=== PATIENT | female | born 1950 | race Caucasian/White ===

== ENCOUNTER → 2017-10-26 07:06 | Outpatient (CLI) | payer BC, MEDICARE, SELFPAY ==
--- NOTE | 2017-10-26 | DI.US.S_ITS ---
PROCEDURE: US PELVIC COMPLETE INDICATIONS: POST MENOPAUSAL BLEEDING TECHNIQUE: Real-time scanning was performed of the pelvic organs, with image documentation. Additional endovaginal scanning was necessary due to incomplete visualization of the adnexal and endometrial structures by transabdominal scanning. COMPARISON: None. FINDINGS: Transabdominal scanning: Limited scanning through the kidneys shows no hydronephrosis. No pathologic free abdominal or pelvic fluid. Endovaginal scanning: Uterus: Uterus is normal in size at 11.2 x 8.2 8.0 cm. The endometrium measures 7.0 mm in combined thickness. Ovaries: Ovaries not visualized. No adnexal masses seen. IMPRESSION: Abnormal thickness of the endometrial complex in this postmenopausal patient with history of vaginal bleeding. Endometrial carcinoma cannot be excluded and endometrial biopsy is recommended. Dictated by: Jorge Gonsalez [facility] Interpreted: Jennifer Flores MD on 10/26/2017 at 7:59 Approved by: Jennifer Flores MD, PhD on 10/26/2017 at 13:52
== END ==
PROVIDERS: Family Provider Family Medicine; PCP Family Medicine; Visit Provider Family Medicine
DX: N95.0 Postmenopausal bleeding (principal); R93.8 Abnormal findings on diagnostic imaging of other specified body structures
CPT/HCPCS: 76830; 76856

== ENCOUNTER → 2020-07-15 08:58 | Outpatient (CLI) | payer MEDICARE, SELFPAY ==
[2020-07-15 10:28] LABS: COVID19 -Nasal RAPID Negative (Negative)
== END ==
PROVIDERS: Visit Provider Obstetrics & Gynecology
DX: Z01.812 Encounter for preprocedural laboratory examination (principal); Z20.822 Contact with and (suspected) exposure to COVID-19
CPT/HCPCS: 87635

== ENCOUNTER 2020-07-16 10:16 | Day surgery (SDC) | payer MEDICARE, SELFPAY ==
[2020-07-16] VITALS (12 sets, daily range): BP systolic 128–165; BP diastolic 68–88; PULSE 50–76; RESP 10–18; TEMP 36.1–36.6; O2SAT 90–100; BMI 43.7
--- NOTE | 2020-07-16 | PATH_ITS ---
[facility] Accession Number: [id number] . 01 Material submitted: . UTERINE - UTERINE CONTENTS . 01 Clinical history: . SDC . 02 Diagnosis: Uterine Contents: Scant foci of atypical glandular hyperplasia / endometrial intraepithelial neoplasia, in a background of abundant blood. Please see comment. MRV 07/19/2020 1109 Local . 02 Comment: As part of routine director quality systems, this case was also reviewed by Drs. Ron and Leandro, who agree with the interpretation. . 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 More extensive sampling, such as a curettage, could be considered, if clinically appropriate. . 02 Electronically signed: . Elenita Lopez MD, Pathologist NPI- [id number] . 01 Gross description: . UTERINE CONTENTS: Received in formalin are minute fragments of mucoid and hemorrhagic material measuring 1.5 x 1.0 x 0.3 cm in aggregate. Submitted in toto in 2 cassettes. /NAHEED 07/17/2020 2310 Local . 02 Pathologist provided ICD-10: N95.0, N84.0 . 02 CPT . 057984 Performed at: 01 [facility] [address], [place], [place] [id number] MD Madi Watson MD Phone: [phone] Performed at: 02 [facility] [address] [place], [place] [id number] MD Shayla Reeves MD Phone: [phone]
--- NOTE | 2020-07-16 10:49 | PM.PREOP ---
Pre-operative Note COVID-19 COVID-19 status: Negative Result date/Date tested (Pos, Neg/Pending): 07/15/20 Interval Note History & Physical reviewed/Exam performed by Physician: Yes Changes to H&P: No H&P completed within 30 days and has changed as indicated here:: 07/01/20
[2020-07-16] MEDS: LACTATED RINGERS 1,000 ML 100 ML IV (11:08)
--- NOTE | 2020-07-16 11:30 | SUR.OPER ---
Lithotomy on padded OR bed, head on pillow, arms secured on padded arm boards at <90 degrees abduction. Legs secured in padded yellow fins stirrups.
--- NOTE | 2020-07-16 12:14 | P.OP_ITS ---
Operative Date/Time/Diagnoses Date of procedure: 07/16/20 Time of procedure: 12:14 Pre-op diagnosis: Postmenopausal bleeding Possible endometrial polyp Post-op diagnosis: same Procedure & Clinicians Procedure: Procedures Operation Date: 07/16/20 11:15 Actual Procedures Side Surgeon p D&C Hysteroscopy and suction D&C Pao Bailey MD Indications: Postmenopausal bleeding Possible endometrial polyp Surgeon: Pao Bailey Anesthesia Type: General (LMA) Operative Notes Findings: Eight week size anteverted uterus Neither fallopian tube ostia observed Due to visibility, no polyp seen Closure Type: not applicable Specimen(s): endometrial curettings Estimated blood loss (mL): 5 Blood products transfused: none Procedure in detail: After informed consent was obtained, the patient was taken to the operating room where she was placed in the dorsal supine position. After adequate LMA general anesthesia was achieved, she was placed in the dorsal lithotomy position, and prepped and draped in the usual sterile fashion. A time-out was performed. An open-sided speculum was placed into the vagina. The cervix was grasped with a single-tooth tenaculum. The cervical os was sequentially dilated to the # 8 Hegar dilator. The hysteroscope passed easily into the endometrial cavity. Due to visibility issues neither fallopian tube ostia could be observed. An increase in the pressure of the fluid did not clear the field. Further dilation of the cervix did not clear the field. The hysteroscope was removed. Polyp forceps were used to try to grasp the polyp. Sharp curettage was performed yielding a small amount of material. A decision was made to try suction. The # 8 curved plastic curette passed easily into the endometrial cavity. And a large amount of tissue and blood were removed. The hysteroscope passed back into the endometrial cavity. Still the visibility did not allow for observation of the fallopian tube ostia or a polyp. The instruments were removed from the uterus. The single-tooth tenaculum was remov ed from the anterior lip of the cervix. The open sided speculum was removed from the vagina. Sponge, lap, and instrument counts were correct x2. The patient tolerated the procedure well, and was taken to PACU in stable condition. Complications: none Post-operative Condition: stable Disposition: PACU Plan for aftercare: Home after recovery
--- NOTE | 2020-07-16 12:19 | SUR.PHASEI ---
assumed care of stable surgical pt from SONU Chin
[2020-07-16] MEDS: KETOROLAC 30 MG/ML VIAL IV (12:27)
[2020-07-16] MEDS: ONDANSETRON 4 MG/2 ML INJ IV (12:43)
[2020-07-16] MEDS: OXYCODONE/ACETAMINOPHEN 5/325 TABLET 1 TAB PO (12:43)
--- NOTE | 2020-07-16 13:44 | SUR.PHASEII ---
Pt ready to go, walked to BR, steady when up. called. Pt left when ready and left in stable condition
== END 2020-07-16 12:37 | disposition home or self-care (01) ==
PROVIDERS: Referring Provider Obstetrics & Gynecology; Visit Provider Obstetrics & Gynecology
PROC: 0UDB8ZZ Extraction of Endometrium, Via Natural or Artificial Opening Endoscopic (ICD-10-PCS; CPT 58558; principal; 2020-07-16 11:15)
DX: N85.00 Endometrial hyperplasia, unspecified (principal); E66.9 Obesity, unspecified; J45.909 Unspecified asthma, uncomplicated; G47.33 Obstructive sleep apnea (adult) (pediatric)
CPT/HCPCS: 58558; J1100; J1885; J2405; J2704; J3010

== ENCOUNTER → 2020-08-05 12:10 | Outpatient (CLI) | payer MEDICARE, SELFPAY ==
[2020-08-05 14:37] LABS: COVID19 -Nasal RAPID Negative (Negative)
== END ==
PROVIDERS: Visit Provider Obstetrics & Gynecology
DX: Z01.812 Encounter for preprocedural laboratory examination (principal); Z20.822 Contact with and (suspected) exposure to COVID-19
CPT/HCPCS: 87635

== ENCOUNTER 2020-08-06 06:45 | Inpatient (IN) | payer MEDICARE, SELFPAY ==
[2020-08-06] VITALS (19 sets, daily range): BP systolic 130–171; BP diastolic 67–104; PULSE 50–87; RESP 12–21; TEMP 36.1–36.6; O2SAT 92–100; BMI 42.1
--- NOTE | 2020-08-06 | PATH_ITS ---
[facility] Accession Number: [id number] . 01 Material submitted: . uterus - UTERUS WITH BILATERAL FALLOPIAN TUBES AND OVARIES . 01 Clinical history: . OPB . 02 Diagnosis: 6Uterus with Bilateral Fallopian Tubes and Ovaries, Total Abdominal Hysterectomy with Bilateral Salpingo-oophorectomy: Endometrial adenocarcinoma with the following features: Procedure: Total hysterectomy and bilateral salpingo-oophorectomy. Hysterctomy type: Abdominal. Specimen integrity: Intact. Tumor site: Endometrium. Tumor size: Greatest dimension 2.5 cm. Histologic type: Endometrioid carcinoma, NOS. Histologic grade: FIGO grade 1. Myometrial invasion: Present. Depth of myometrial invasion: 17 mm. Myometrial thickness: 25 mm. Percent of myometrial invasion: 68%. Adenomyosis: Not identified. Uterine serosa involvement: Not identified. Lower uterine segment involvement: Not identified. Cervical stromal involvement: Not identified. Other tissue/organ involvement: Not identified (right and left fallopian tubes and right and left ovaries). Margins: Ectocervical/vaginal cuff margin: Uninvolved by carcinoma. Parametrial/paracervical margin: Negative for tumor. Lymphovascular invasion: Not identified. Regional lymph nodes: No lymph nodes submitted or found. Pathologic stage classification (pTNM, AJCC 8th Edition): pT1b pNX. [facility] 08/13/2020 1412 Local . 02 Comment: As part of routine water quality specialist, this case was also reviewed by Dr. Reeves, who agrees with the interpretation. . Results discussed with Dr. Bailey's nurse, Mitzi, on 08-13-20 at approximately 2:04 p.m. . 02 Electronically signed: . Elenita Lopez MD, Pathologist NPI- [id number] . 01 Gross description: . The specimen is received in formalin labeled uterus, bilateral tubes and ovaries, and consists of a 227 gram uterus, cervix, and attached bilateral fallopian tubes and ovaries. The specimen measures 13.0 cm from superior fundus to cervix x 8.5 cm from cornu to cornu, x 6.0 cm from anterior to posterior. The serosa is purvis-pink and smooth. The purvis-pink smooth ectocervix measures 3.2 x 2.5 cm, and there is a 0.5 x 0.1 cm os. The anterior paracervical soft tissue is inked blue, and the posterior is inked black. The specimen is bivalved to reveal a purvis-pink herringbone endocervical mucosa. The endometrial cavity measures 6.0 x 4.5 cm and displays a purvis-pink slightly ragged endometrium measuring up to 0.5 cm in thickness. There is a 2.3 x 1.5 cm irregular purvis ragged area within the endomyometrium with a maximal thickness of 1.2 cm, coming to within 1.0 cm from the serosa (posteriorly). The myometrium is purvis-pink and trabeculated, measuring up to 2.5 cm in thickness. There are two detached ovaries and fallopian tubes. The ovaries measure 3.5 x 1.5 x 1.2 cm and 4.0 x 1.0 x 0.9 cm. The external surfaces are purvis and smooth with focal fibrinous adhesions. Sectioning reveals a purvis ovarian stroma. The fallopian tubes measure 4.5 cm in length x 0.6 cm in diameter, and both appear to have been previously ligated. The serosa is pink-purple and smooth with fibrinous adhesions and multiple paratubal cysts ranging from 0.1 to 1.9 cm. Sectioning reveals a purvis mucosa and a stellate lumen measuring 0.3 cm in diameter. Program And Research Coordinator sections are submitted. . A1 - Right parametrium. A2 - Left parametrium. A3 - Anterior cervix. A4 - Posterior cervix. A5-A7 - Anterior uterus. A8 - Posterior uterus. A9-A11 - Posterior uterus, to include irregular area of endometrium. A12 - Ovary, bisected and entirely submitted. A13-A14 - Attached fallopian tube, central cross sections and bisected fimbria. A15 - Other ovary, trisected. A16 - Attached fallopian tube, bisected fimbria and central cross sections. (EA:[id number]) ADDITIONAL CASSETTES: A17 - Anterior lower uterine segment (proximal inked black). A18 - Posterior lower uterine segment (proximal inked black). (EA:[id number]) /[facility] 08/13/2020 1402 Local . 02 Pathologist provided ICD-10: C54.1 . 02 CPT . 175366 Performed at: 01 [facility] [address] [id number] MD Madi Watson MD Phone: [phone] Performed at: 02 [facility] [address] [address] [place], [place] [id number] MD Shayla Reeves MD Phone: [phone]
[2020-08-06] MEDS: LACTATED RINGERS 1,000 ML 100 ML IV ×3 (07:25→21:31)
--- NOTE | 2020-08-06 07:57 | SUR.OPER ---
Lithotomy on padded OR bed. Helemano Pad Positioner under torso. Head on pillow, arms padded and tucked at sides. Legs secured in padded yellow fins stirrups.
--- NOTE | 2020-08-06 08:06 | PM.PREOP ---
Pre-operative Note COVID-19 COVID-19 status: Negative Result date/Date tested (Pos, Neg/Pending): 08/05/20 Interval Note History & Physical reviewed/Exam performed by Physician: Yes Changes to H&P: No H&P completed within 30 days and has changed as indicated here:: 08/05/20
[2020-08-06] MEDS: CEFAZOLIN VIAL 3 GM in SODIUM CHLORIDE 0.9% 100 ML 200 ML IV (08:09)
--- NOTE | 2020-08-06 08:52 | PATH_ITS ---
Note [facility] Accession Number: [id number] TESTS RESULT FLAG UNITS REF RANGE LAB Clinician Provided Cytology Information No. of containers..01 Other (Miscellaneous) 01 PELVIC WASHINGS Clinician ICD10: C54.1 DIAGNOSIS: 01 PELVIC WASHINGS NEGATIVE FOR MALIGNANT CELLS. REACTIVE MESOTHELIAL CELLS ARE PRESENT. THIS INTERPRETATION INCLUDES EVALUATION OF A CELL BLOCK. Pathologist ICD10: C54.1 Betty Khan MD, Pathologist NPI- [id number] Haim Gould, Fermenting Cellars Receiver ([facility]) 01 50 CC, PINK, CLOUDY RECEIVED: FRESH IN ORANGE CAP CONTAINER. /VD 08/07/2020 0952 Local FLAG LEGEND: L-Low Normal,H-High Normal,LL-Alert Low,HH-Alert High <-Panic Low,>-Panic High,A-Abnormal,AA-Critical Abnormal Performed at: 01 [facility] [address], [place] [address] Madi Watson MD, Specimen Comment: A duplicate report has been generated due to demographic updates. Performed at: 01 [facility] [address], [place], [place] [id number] MD Madi Watson MD Phone: [phone]
--- NOTE | 2020-08-06 08:53 | SUR.OPER ---
Position change after pelvic evaluation by to supine on padded OR bed with padded sled lower extremities, head on pillow, arm padded and tucked at side, legs uncrossed, tape over blanket over lower legs .
--- NOTE | 2020-08-06 10:13 | P.OP_ITS ---
Operative Date/Time/Diagnoses Date of procedure: 08/06/20 Time of procedure: 10:13 Pre-op diagnosis: Grade 1 endometrial cancer Post-op diagnosis: same Procedure & Clinicians Procedure: Procedures Operation Date: 08/06/20 08:00 Actual Procedures Side Surgeon p Total Abdominal Hysterectomy With Bilateral Salpingoophorectomy Pao Bailey MD Indications: Grade 1 endometrial cancer Surgeon: Pao Bailey Chief Juvenile Probation Officer: Liset Kee Anesthesia Type: General Operative Notes Findings: Ten week size anteverted uterus. 6 cm long cervix Small simple cyst on the right ovary Tubes status post ligation bilaterally Liver normal Omentum normal Bowel normal Closure Type: primary Specimen(s): left tube & ovary, right tube & ovary, uterus and washings Applied: catheter Estimated blood loss (mL): 75 Blood products transfused: none Procedure in detail: The patient was taken to the operating room where she was placed in the dorsal supine position. After adequate general endotracheal anesthesia was achieved, she was placed in the dorsal lithotomy. An examination under anesthesia was performed. The vaginal gaona were prolapsed into the midline. The cervix could not be visualized. Once a single-tooth tenaculum was placed on the cervix, there was no descensus of the uterus. A decision was made to proceed with an open procedure. The patient was placed in the dorsal supine position. She was prepped and draped in the usual sterile fashion. A Carrero catheter was placed. A Pfannenstiel skin incision was made 2 fingerbreadths above the pubic symphysis and carried through to the underlying layer of fascia. The fascia was nicked in the midline and the incision extended bilaterally with the Mendoza scissors. The superior aspect of the fascial incision was grasped with the Kiana clamps, elevated, and the underlying rectus muscles dissected off sharply and bluntly. Attention was then turned to the inferior aspect of this incision which in a similar fashion was grasped with the Kiana clamps, elevated, and the underlying rectus muscles dissected off sharply and bluntly. The muscles were in the midline. The peritoneum was identified and grasped between 2 hemostats. It was entered sharply with the Metzenbaum scissors. This incision was extended superiorly and inferiorly with good visualization of the bladder. Pelvic washings were obtained. The liver was pa lpated and was normal as well as both sidewalls. The omentum was inspected and was normal as well. The large Thor was placed into the peritoneal cavity. The bowel was packed away with moist lap sponges. [place] clamps were placed on the cornua of the uterus. The round ligament on the right side was grasped with 2 [place] clamps, cut, and ligated with 0 Vicryl and tagged with a hemostat. The anterior and posterior peritoneums were entered with care to avoid the blood vessels. The broad ligament was incised. The tube and ovary were grasped with a Paola. The infundibulopelvic ligament on the right side was doubly clamped, cut, free tied with 0 Vicryl and then suture ligated with 0 Vicryl. The bladder flap was created sharply using the Metzenbaum scissors and the bladder was taken down off of the uterus using a moistened sponge stick. The uterine arteries were skeletonized on the right side. They were clamped, cut, and suture ligated with 0 Vicryl. This was all repeated on the patient's left side by the human services assistant. The remainder of the bladder flap was created and the bladder taken well down off of the lower uterine segment and cervix. The uterosacral cardinal ligament complexes were clamped, cut, and suture ligated with 0 Vicryl and tagged with a hemostat. The vagina was entered with a 15. Blade. The vaginal cuff was grasped with Allis clamps. The uterus, tubes, and ovaries were handed off as specimen. The angles of the vaginal cuff were closed with 0 Vicryl and tagged with hemostats. The remainder of the vaginal cuff was closed with a series of simple interrupted sutures with 0 Vicryl. The pelvis was copiously irrigated. There was a small amount of bleeding noted from the left side. Two 0 Vicryl was used with a edxxrn-pe-bilge stitch for hemostasis. The pelvis was again copiously irrigated with warm normal saline. No bleeding was noted. All of the tagged sutures were cut. The Thor was removed from the peritoneal cavity along with all the lap sponges. The peritoneum was closed with 2 0 Vicryl in a running fashion. The fascia was reapproximated with 0 Vicryl in a running fashion. The human services assistant did the contralateral side. The subcutaneous tissue was copiously irrigated with warm normal saline. The cautery was used for hemostasis. Two layers of closure were used with 3-0 Vicryl approximately 5 simple interrupted sutures in each layer. The skin was closed with 4 0 Monocryl in a subcuticular fashion. Steri-Strips and an Aquacel dressing were placed. Sponge, lap, and instrument counts were correct x2. The patient tolerated the procedure well, and was taken to PACU in stable condition. The human services assistant during this case of an obese woman was necessary for retraction and for completing her side of the uterus as well as the contralateral side of the fascia. Significant retraction was required in the subcutaneous layer, in the peritoneal cavity, and during removal of the uterus, tubes, and ovaries, due to the patient's body habitus. Complications: none Post-operative Condition: stable Disposition: PACU Plan for aftercare: To acute care after recovery
[2020-08-06] MEDS: HYDROMORPHONE 2 MG INJ IV (10:20)
[2020-08-06] MEDS: OXYCODONE/ACETAMINOPHEN 5/325 TABLET 1 TAB PO (10:41)
[2020-08-06] MEDS: fentaNYL 100 MCG/2 ML INJ IV (10:58)
[2020-08-06] MEDS: KETOROLAC 30 MG/ML VIAL IV ×3 (11:57→23:43)
[2020-08-06] MEDS: OXYCODONE IR 5 MG TABLET PO ×2 (12:29→21:27)
[2020-08-06] MEDS: ACETAMINOPHEN 325 MG TABLET 650 MG PO ×3 (12:30→23:54)
[2020-08-06] MEDS: HYDROMORPHONE 1 MG INJ IV (17:35)
[2020-08-06] MEDS: DOCUSATE 250 MG CAPSULE PO (21:27)
[2020-08-07 04:45] VITALS: BP 124/72; PULSE 72; RESP 18; TEMP 36.7; O2SAT 96
[2020-08-07] MEDS: OXYCODONE IR 5 MG TABLET PO (04:58)
[2020-08-07] MEDS: KETOROLAC 30 MG/ML VIAL IV (05:30)
[2020-08-07] MEDS: ACETAMINOPHEN 325 MG TABLET 650 MG PO ×3 (05:30→17:45)
[2020-08-07] MEDS: LEVOTHYROXINE 150 MCG TABLET PO (05:30)
--- NOTE | 2020-08-07 05:54 | PC.NURSE ---
Carrero removed per Dr Bailey's orders at 0554.
[2020-08-07 06:33] LABS: Add Manual Diff / Slide Review NO; Basophils Absolute Auto 100 /uL (0-100); Basophils Percent Auto 0.6 % (0-2); Eosinophils Absolute Auto 0 /uL (0-450); Eosinophils Percent Auto 0.1 % (2-4); Hematocrit 35.6 % (36-46); Lymphocytes Absolute Auto 1900 /uL (1100-4500); Lymphocytes Percent Auto 15.3 % (25-40); Mean Corpuscular HGB Conc 33.7 % (30-36); Mean Corpuscular Hemoglobin 32.1 PG (26-34); Mean Corpuscular Volume 95.2 fL (80-100); Monocytes Absolute Auto 1300 /uL (0-900); Monocytes Percent Auto 10.4 % (3-14); Neutrophils Absolute Auto 9300 /uL (1500-7000); Neutrophils Percent Auto 73.6 % (50-75); Platelet Count 240 X10^3/uL (150-400); Red Blood Cell Count 3.73 X10^6/uL (4.0-5.2); Red Cell Distribution Width 11.6 % (11.6-14.8); White Blood Cell Count 12.7 X10^3/uL (4.5-11.0)
[2020-08-07 06:41] LABS: BUN Creatinine Ratio 26.6 (6-22); Blood Urea Nitrogen 17 mg/dL (7-17); Calcium 9.2 mg/dL (8.4-10.2); Carbon Dioxide 30 mmol/L (22-32); Chloride 97 mmol/L (98-107); Estimated Glomerular Filt Rate > 60.0 mL/min (>60); Glucose 124 mg/dL (80-110); HEMOLYSIS < 15 (0-50); Potassium 4.5 mmol/L (3.4-5.1); Sodium 132 mmol/L (137-145)
[2020-08-07] MEDS: LACTATED RINGERS 1,000 ML 100 ML IV (07:59)
[2020-08-07 08:00] VITALS: BP 118/75; PULSE 63; RESP 20; TEMP 36.9; O2SAT 98
[2020-08-07] MEDS: ENOXAPARIN 40 MG/0.4 ML SYRINGE SUBCUT ×2 (08:07→20:27)
[2020-08-07] MEDS: DOCUSATE 250 MG CAPSULE PO ×2 (08:07→20:27)
--- NOTE | 2020-08-07 11:02 | CM.DANOTE ---
DCP: Case received, EMR reviewed and met with patient. Introduced self and role. Was able to obtain information from patient regarding her baseline activity level prior to surgery. DCP assessment completed with information currently available. Patient is a 70 year old female who admitted yesterday morning to the care of the [facility] team. PCP: Dr. Nur/OB/Dr. Bailey. Payer: confirmed: Medicare. Patient came to the hospital via private vehicle for a surgical procedure. She had a bilateral oophorectomy, patient has history of endometrial cancer. Patient had surgery yesterday. Met with patient in her room. She is alert and oriented, pleasant. She is independent at her baseline, and resides in [place] with her spouse, Richy. She is employed at [employer]. Patient also goes to a blue line hanger, named Dr. Merino. P: DCP to continue to follow. Patient should be able to go home when medically stable. Tawnya Matute RN/Plastic Tile Layer
[2020-08-07] MEDS: IBUPROFEN 600 MG TABLET PO ×2 (11:09→17:45)
[2020-08-07 15:10] VITALS: BP 166/93; PULSE 81; RESP 18; TEMP 36.2; O2SAT 97
[2020-08-07] MEDS: MAGNESIUM HYDROXIDE 30 ML UDC PO (16:34)
[2020-08-07 19:40] VITALS: BP 126/77; PULSE 71; RESP 18; TEMP 36.6; O2SAT 94
--- NOTE | 2020-08-07 21:38 | P.PN_ITS ---
Subjective Subjective Date Patient Seen: 08/07/20 Time Patient Seen: 18:00 Interval history: Patient is a 70-year-old postop day # 1 status post total abdominal hysterectomy with bilateral salpingo-oophorectomy due to a grade 1 endometrial cancer. Patient is tolerating a diet. She is ambulating without assistance. She has voided without the catheter. She is passing flatus. Her pain is well controlled. Exam Vital Signs (past 8 hours): - 08/07/20 15:10 08/07/20 19:40 Temperature 97.2 F L 97.8 F Pulse Rate 81 71 Respiratory Rate 18 18 Blood Pressure 166/93 H 126/77 Pulse Oximetry 97 94 Oxygen Delivery Method Room Air Oxygen Flow Rate 0 Narrative Exam Narrative: Generally: Patient is sitting up in the chair, no acute distress Lungs: Clear to auscultation bilaterally Cardiovascular: Regular rate and rhythm Abdomen: Soft, good bowel sounds in all 4 quadrants Incision: Clean dry and intact with Aquacel dressing Extremities: Negative Homans Objective Labs Result Diagrams: 08/07/20 06:23 08/07/20 06:23 Labs: Laboratory Results - last 24 hr 08/07/20 08/07/20 06:23 06:23 WBC 12.7 H RBC 3.73 L Hgb 12.0 Hct 35.6 L MCV 95.2 MCH 32.1 MCHC 33.7 RDW 11.6 Plt Count 240 Neut % (Auto) 73.6 Lymph % (Auto) 15.3 L [place] % (Auto) 10.4 Eos % (Auto) 0.1 L Baso % (Auto) 0.6 Neut # (Auto) 9300 H Lymph # (Auto) 1900 [place] # (Auto) 1300 H Eos # (Auto) 0 Baso # (Auto) 100 Sodium 132 L Potassium 4.5 Chloride 97 L Carbon Dioxide 30 BUN 17 Creatinine 0.64 Estimated GFR > 60.0 BUN/Creatinine Ratio 26.6 H Glucose 124 H Calcium 9.2 PFSH Medical History (Updated 08/06/20 @ 06:54 by Pao Bailey MD) Allergies Asthma Chicken pox Constipation Hypothyroidism Lazy eye of both sides Measles Mumps Obesity Postmenopausal bleeding Sleep apnea Vertigo Surgical History (Updated 07/30/20 @ 15:42 by Sharon Moreira RN) Anesthesia S/P hip replacement (~06/2009) S/P hip replacement (~02/2008) S/P LASIK surgery (~2006) S/P shoulder replacement (~08/2014) S/P shoulder replacement S/P tubal ligation (~1979) Family History (Updated 07/08/20 @ 21:58 by Maria Elena Morton) Father Diabetes mellitus Sister Uterine cancer Mental health problem Sister Hyperlipidemia Hypertension Sister Breast cancer Grandfather Diabetes mellitus Grandmother Asthma Grandmother No problems noted. Daughter Hypertension Hyperlipidemia Stroke Social History household members: spouse Smoking Status: Never smoker alcohol intake: current Assessment & Plan Post-op Postoperative Procedures: Procedures Operation Date: 08/06/20 08:00 Actual Procedures Side Surgeon p Total Abdominal Hysterectomy With Bilateral Salpingoophorectomy Pao Bailey MD Postoperative day: 1 Postoperative status: doing well Postoperative status narrative: Postop day # 1, patient doing very well. Postoperative plan: routine post-op care, ambulate and advance diet Postoperative plan narrative: Anticipate discharge August 08, 2020 Time Spent With Patient Time with patient: 15-24 minutes Quality VTE Deep Vein Thrombosis/Pulmonary Embolism Present on Admission: No
[2020-08-07 23:45] VITALS: BP 129/69; PULSE 60; RESP 18; TEMP 36.6; O2SAT 97
[2020-08-08] MEDS: IBUPROFEN 600 MG TABLET PO ×2 (00:06→06:04)
[2020-08-08] MEDS: ACETAMINOPHEN 325 MG TABLET 650 MG PO ×2 (00:06→06:04)
[2020-08-08] MEDS: ZOLPIDEM 5 MG TABLET PO (00:10)
--- NOTE | 2020-08-08 00:24 | PC.NURSE ---
patient is alert and oriented. Breath sounds CTA with RA sat of 97%; wearing home BiPAP. HRR. Denies nausea. BT present and abdomen is soft; has been passing flatus. Denies dysuria, frequency or urgency with urination. Able to turn herself in bed. Gets up with SBA for safety. Aquacel dressing to lower abdomen is intact with small spot of drainage noted. States pain is currently 4/10 and is medicated with scheduled Tylenol + Ibuprofen and states no additional pain medication is needed at this time. Requested/medicated with Makien for sleep. Declines to wear bilateral SCD's because it is too hard to sleep with them on; reminded to ankle wave when awake. Reports having fallen in past 3 months so fall risk score is moderate and bed alarm is activated.
[2020-08-08] MEDS: LEVOTHYROXINE 150 MCG TABLET PO (06:08)
[2020-08-08] MEDS: ENOXAPARIN 40 MG/0.4 ML SYRINGE SUBCUT (09:17)
[2020-08-08] MEDS: DOCUSATE 250 MG CAPSULE PO (09:17)
--- NOTE | 2020-08-08 10:19 | PC.NURSE ---
DI given to pt and spouse, discussed- DI for hysterectomy, DI for opioid use, diet, weight measures, activity, s/s of infection, medications, s/s of stroke and reasons to seek medical attention. Pt and spouse expressed understanding. IV removed, intact, tolerated well. Personal med rec'd from pharmacy and given to pt. Pt packed up all belongings, left via w/c to spouse's POV accompanied by SENIOR LANDSCAPE ARCHITECT.
--- NOTE | 2020-08-08 13:52 | PM.DS.1 ---
History of Present Illness History of Present Illness Date Patient Seen: 08/08/20 Time Patient Seen: 08:00 Chief complaint: *OPB* Narrative: Patient is a 70-year-old postop day # 2 status post total abdominal hysterectomy with bilateral salpingo-oophorectomy for a grade 1 endometrial cancer. Discharge Providers Provider Date of admission: 08/06/20 06:45 Discharge Date: 08/08/20 Primary care physician: Vi Nur MD Consults: 08/05/20 08:07 Consult to Respiratory Therapy Evaluate & Treat Comment: Will bring CPAP Physician Instructions: Evaluate and treat Discharge provider: Pao Bailey MD Summary Hospital Course Discharge Diagnosis: Grade 1 endometrial cancer Status post BILL/BSO Hospital Course: Patient is a 70-year-old postop day # 2 status post TAHBSO for a grade 1 endometrial cancer. Her postoperative course was unremarkable. On postop day # 1 her Carrero catheter was removed and she was able to void without catheter. Her pain was well controlled. She tolerated a diet from postop day # 0. She ambulated independently. She passed flatus and had a bowel movement by postop day # 2. She is discharged home. She will follow-up in 1 week for Aquacel dressing removal. Status at Discharge Cognitive/behavioral status at discharge: oriented Functional status at discharge: independent ambulation Overall status at discharge: patient is progressing back to baseline Time Spent with Patient Time spent: Less than 30 minutes Exam Vital Signs (past 8 hours): Oxygen Delivery Method Room Air,BiPAP Oxygen Flow Rate 0 Narrative Exam Narrative: Generally: A well-developed, well-nourished female, sitting up in a chair, no acute distress Lungs: Clear to auscultation bilaterally Cardiovascular: Regular rate and rhythm Abdomen: Soft, good bowel sounds. Incision: Clean dry and intact with Aquacel dressing Extremities: Negative Homans, trace edema Objective Labs Result Diagrams: 08/07/20 06:23 08/07/20 06:23 [facility] [place] Medical History (Updated 08/06/20 @ 06:54 by Pao Bailey MD) Allergies Asthma Chicken pox Constipation Hypothyroidism Lazy eye of both sides Measles Mumps Obesity Postmenopausal bleeding Sleep apnea Vertigo Surgical History (Updated 07/30/20 @ 15:42 by Sharon Moreira RN) Anesthesia S/P hip replacement (~06/2009) S/P hip replacement (~02/2008) S/P LASIK surgery (~2006) S/P shoulder replacement (~08/2014) S/P shoulder replacement S/P tubal ligation (~1979) Family History (Updated 07/08/20 @ 21:58 by Maria Elena Morton) Father Diabetes mellitus Sister Uterine cancer Mental health problem Sister Hyperlipidemia Hypertension Sister Breast cancer Grandfather Diabetes mellitus Grandmother Asthma Grandmother No problems noted. Daughter Hypertension Hyperlipidemia Stroke Social History household members: spouse Smoking Status: Never smoker alcohol intake: current Discharge Assessment & Plan Assessment and Plan Assessment: Postop day # 2 status post BILL/BSO doing very well Tolerating a diet, voiding without catheter, having flatus and a bowel movement, ambulating independently, pain well controlled Plan of Treatment: Discharge to home Follow-up in 1 week for Aquacel dressing removal Ibuprofen 600 mg every 6 hours Tylenol 650 mg every 6 hours Stool softeners Oxycodone 5 mg every 4 hours as needed Patient to call with fever, chills, redness or drainage around the incision, or bleeding vaginally more than spotting. Discharge Plan Discharge Plan Patient Disposition: Home Provider Discharge Comment: Call with fever, chills, redness or drainage around the incision, or bleeding vaginally more than spotting. Tylenol 650 mg every 6 hours Ibuprofen 600 mg every 6 hours Stool softener once or twice a day as needed Discharge orders & Medications Prescriptions: New oxycodone 5 mg tablet 5 mg PO Q4H PRN (Reason: pain) Qty: 20 RF: 0 Continued levothyroxine 150 mcg capsule 150 mcg PO DAILY RF: 0 Follow up/Referrals: Pao Bailey MD [Physician] - 08/13/20 1:15 pm (1 week Aquacel dressing removal. Next 08/13/20 @ 1:15 please arrive 15 minute prior to scheduled appointment ) Diet/Activity/Treatments Diet: Regular Activity: No heavy lifting. Nothing more than a gal of milk. Skin/Wound/Dressing Care Report to your healthcare provider any signs of infection, such as:: chills, fever, increased pain, unusual drainage and unusual redness Dressing: Do not remove Visit Report/Discharge Packet Instructions: DI for Hysterectomy, DI for Prescription Opioid Use Stand Alone Forms: Surgery Discharge Discharge Data Primary Care Provider: Vi Nur VTE Deep Vein Thrombosis/Pulmonary Embolism Present on Admission: No
== END 2020-08-08 10:21 | disposition home or self-care (01) | DRG 740 ==
LOC: AC 06:45
PROVIDERS: Admitting Provider Obstetrics & Gynecology; PCP Student in an Organized Health Care Education/Training Program; Referring Provider Student in an Organized Health Care Education/Training Program; Visit Provider Obstetrics & Gynecology
PROC: 0UT90ZZ Resection of Uterus, Open Approach (ICD-10-PCS; CPT 58150; 2020-08-06 08:00)
DX: C54.1 Malignant neoplasm of endometrium (principal); Z68.41 Body mass index [BMI] 40.0-44.9, adult; Z20.822 Contact with and (suspected) exposure to COVID-19; E66.9 Obesity, unspecified; E03.9 Hypothyroidism, unspecified
CPT/HCPCS: 36415; 58150; 80048; 85025; 87635; J0690; J1100; J1170; J1650; J1885; J2405; J2704; J3010

== ENCOUNTER → 2020-09-04 08:13 | Outpatient (CLI) | payer MEDICARE, SELFPAY ==
[2020-08-06 12:01] VITALS: BMI 42.1
--- NOTE | 2020-09-04 | DI.MG.S_ITS ---
BILATERAL DIGITAL SCREENING MAMMOGRAM 3D/2D WITH CAD: 09/04/2020 CLINICAL: Routine screening. Family history of breast cancer. Comparison is made to exams dated: 01/09/2008 mammogram and 11/28/2015 mammogram - [facility]. There are scattered fibroglandular elements in both breasts. Current study was also evaluated with a Computer Aided Detection (CAD) system. No significant masses, calcifications, or other findings are seen in either breast. There has been no significant interval change. IMPRESSION: NEGATIVE There is no mammographic evidence of malignancy. A 1 year screening mammogram is recommended. This exam was interpreted at Station ID: [id number]. NOTE: For mammograms, a report in lay terms will be sent to the patient. Approximately 15% of breast malignancies will not be visualized mammographically. In the management of a palpable breast mass, a negative mammogram must not discourage biopsy of a clinically suspicious lesion. Electronically Signed By: Ryley moser/jia:09/04/2020 09:43:32 copy to: BENJAMIN MENDOZA letter sent: Normal Exam ACR BI-RADS Category 1: Negative [id number]
== END ==
PROVIDERS: PCP Naturopath; Referring Provider Naturopath; Visit Provider Naturopath
DX: Z12.31 Encounter for screening mammogram for malignant neoplasm of breast (principal); Z80.3 Family history of malignant neoplasm of breast
CPT/HCPCS: 77063; 77067

== ENCOUNTER → 2020-09-09 14:38 | Outpatient (CLI) | payer MEDICARE, SELFPAY ==
[2020-08-06 12:01] VITALS: BMI 42.1
[2020-09-09 15:19] LABS: BUN Creatinine Ratio 34.4 (6-22); Blood Urea Nitrogen 21 mg/dL (7-17); Calcium 9.8 mg/dL (8.4-10.2); Carbon Dioxide 28 mmol/L (22-32); Chloride 104 mmol/L (98-107); Estimated Glomerular Filt Rate > 60.0 mL/min (>60); Glucose 97 mg/dL (80-110); HEMOLYSIS < 15 (0-50); Potassium 4.1 mmol/L (3.4-5.1); Sodium 140 mmol/L (137-145)
== END ==
PROVIDERS: PCP Naturopath; Referring Provider Obstetrics & Gynecology Gynecologic Oncology; Visit Provider Obstetrics & Gynecology Gynecologic Oncology
DX: C54.1 Malignant neoplasm of endometrium (principal)
CPT/HCPCS: 36415; 80048

== ENCOUNTER → 2020-09-11 10:31 | Outpatient (CLI) | payer MEDICARE, SELFPAY ==
[2020-08-06 12:01] VITALS: BMI 42.1
== END ==
PROVIDERS: PCP Naturopath; Referring Provider Obstetrics & Gynecology Gynecologic Oncology; Visit Provider Obstetrics & Gynecology Gynecologic Oncology
DX: C54.1 Malignant neoplasm of endometrium (principal); Z53.8 Procedure and treatment not carried out for other reasons

== ENCOUNTER → 2020-09-12 11:38 | Outpatient (CLI) | payer MEDICARE, SELFPAY ==
[2020-08-06 12:01] VITALS: BMI 42.1
--- NOTE | 2020-09-12 | DI.CT.S_ITS ---
PROCEDURE: CT ABDOMEN PELVIS W CON INDICATIONS: Malignant neoplasm of endometrium TECHNIQUE: After the administration of oral and intravenous contrast, 5 mm thick sections acquired from the diaphragms to the symphysis. 5 mm thick coronal and sagittal reformats were performed. For radiation dose reduction, the following was used: automated exposure control, adjustment of mA and/or kV according to patient size. COMPARISON: None. FINDINGS: ABDOMEN: Lung bases: Normal. Heart: No significant findings. Liver: Normal. Gallbladder: Cholelithiasis incidentally noted. Bile ducts: Normal. Pancreas: Normal. Spleen: Normal. Adrenals: Normal. Kidneys and Ureters: Normal. Stomach and duodenum: Normal. Bowel: Normal. Other: No free fluid or air. Abdominal nodes: There are shotty retroperitoneal lymph nodes although subcentimeter in size. Numerous mesenteric lymph nodes are also present and there is ill-defined stranding and hazy attenuation throughout the mesenteric root. Aorta and IVC: Normal in size. Ventral wall: Normal. PELVIS: Suboptimal evaluation due to hip arthroplasty artifact. Bladder: Bladder is partially obscured by bilateral hip arthroplasty streak artifact. Inguinal region: No hernia. Pelvic nodes: Normal. Bones: Spondylytic changes and facet arthropathy. No vertebral body compression fracture. IMPRESSION: Shotty scattered mesenteric and retroperitoneal lymph nodes with hazy attenuation in the adjacent fat. Metastatic disease is certainly a consideration however this appearance has a differential including mesenteric panniculitis, lymphoma, celiac disease among other possibilities. This finding is technically age indeterminate. If there are any obtainable outside comparison CT examination for review these would be most helpful. Elsewhere, no specific evidence of distant metastatic disease. Dictated by: Jasper Coleman M.D. on 09/12/2020 at 16:18 Approved by: Jasper Coleman M.D. on 09/12/2020 at 16:28
== END ==
PROVIDERS: PCP Naturopath; Referring Provider Obstetrics & Gynecology Gynecologic Oncology; Visit Provider Obstetrics & Gynecology Gynecologic Oncology
DX: C54.1 Malignant neoplasm of endometrium (principal); R59.0 Localized enlarged lymph nodes; K80.20 Calculus of gallbladder without cholecystitis without obstruction
CPT/HCPCS: 74177

== ENCOUNTER → 2020-10-16 08:04 | Outpatient (CLI) | payer MEDICARE, SELFPAY ==
[2020-08-06 12:01] VITALS: BMI 42.1
[2020-10-16 09:48] LABS: Cholesterol 259 mg/dL (140-199); HDL Cholesterol 77 mg/dL (40-60); LDL Cholesterol Calculated 158 mg/dL (<100); Triglycerides 122 mg/dL (35-150)
[2020-10-16 10:57] LABS: Free T4, Direct Thyroxine 1.57 ng/dL (0.78-2.19)
== END ==
PROVIDERS: PCP Naturopath; Referring Provider Student in an Organized Health Care Education/Training Program; Visit Provider Student in an Organized Health Care Education/Training Program
DX: E78.5 Hyperlipidemia, unspecified (principal); E03.9 Hypothyroidism, unspecified
CPT/HCPCS: 36415; 80061; 84439; 84443

== ENCOUNTER → 2021-01-15 15:37 | Outpatient (CLI) | payer MEDICARE, SELFPAY ==
[2020-08-06 12:01] VITALS: BMI 42.1
[2021-01-15 18:47] LABS: TSH w/ Reflex to FT4 0.15 uIU/mL (0.47-4.68)
[2021-01-15 19:16] LABS: Free T4, Direct Thyroxine 1.55 ng/dL (0.78-2.19)
[2021-01-16 12:51] LABS: SARS CoV19 IgG Negative (Negative)
== END ==
PROVIDERS: PCP Naturopath; Referring Provider Registered Nurse Diabetes Educator; Visit Provider Registered Nurse Diabetes Educator
DX: Z20.822 Contact with and (suspected) exposure to COVID-19 (principal); E03.9 Hypothyroidism, unspecified
CPT/HCPCS: 36415; 84439; 84443; 86769

== ENCOUNTER → 2021-08-20 16:00 | Outpatient (CLI) | payer MEDICARE, SELFPAY ==
[2020-08-06 12:01] VITALS: BMI 42.1
[2021-08-20 16:51] LABS: Add Manual Diff / Slide Review NO; Basophils Absolute Auto 100 /uL (0-100); Basophils Percent Auto 1.2 % (0-2); Eosinophils Absolute Auto 100 /uL (0-450); Eosinophils Percent Auto 1.5 % (2-4); Hemoglobin 13.6 g/dL (12.0-16.0); Lymphocytes Absolute Auto 2700 /uL (1100-4500); Lymphocytes Percent Auto 37.4 % (25-40); Mean Corpuscular HGB Conc 34.9 % (30-36); Mean Corpuscular Hemoglobin 32.4 PG (26-34); Mean Corpuscular Volume 92.8 fL (80-100); Monocytes Absolute Auto 700 /uL (0-900); Monocytes Percent Auto 9.6 % (3-14); Neutrophils Absolute Auto 3600 /uL (1500-7000); Neutrophils Percent Auto 50.3 % (50-75); Platelet Count 265 X10^3/uL (150-400); Red Cell Distribution Width 13.4 % (11.6-14.8); White Blood Cell Count 7.2 X10^3/uL (4.5-11.0)
[2021-08-20 17:40] LABS: Estradiol, Total 17.9 pg/mL
[2021-08-20 18:28] LABS: HEMOLYSIS < 15 (0-50); Iron 64 ug/dL (37-170)
[2021-08-20 18:41] LABS: Percent Iron Saturation 23 % (15-50); Total Iron Binding Capacity 281 ug/dL (265-497); Transferrin 210 mg/dL (206-381)
[2021-08-20 18:54] LABS: Free T3, Triiodothyronine Free 2.88 pg/mL (2.77-5.27); Free T4, Direct Thyroxine 1.42 ng/dL (0.78-2.19)
[2021-08-20 19:08] LABS: Thyroid Stimulating Hormone 1.49 uIU/mL (0.47-4.68)
[2021-08-28 00:08] LABS: Triiodothyronine T3 Reverse 19.7 ng/dL (9.2-24.1)
== END ==
PROVIDERS: PCP Registered Nurse Diabetes Educator; Referring Provider Obstetrics & Gynecology; Visit Provider Obstetrics & Gynecology
DX: E03.9 Hypothyroidism, unspecified (principal); I10 Essential (primary) hypertension
CPT/HCPCS: 36415; 82670; 83540; 83550; 84439; 84443; 84481; 84482; 85025

== ENCOUNTER → 2023-07-31 09:55 | Outpatient (CLI) | payer MEDICARE, SELFPAY ==
[2020-08-06 12:01] VITALS: BMI 42.1
[2023-07-31 11:10] LABS: Add Manual Diff / Slide Review NO; Basophils Absolute Auto 100 /uL (0-100); Basophils Percent Auto 0.8 % (0-2); Eosinophils Absolute Auto 100 /uL (0-450); Eosinophils Percent Auto 1.9 % (2-4); Hematocrit 40.5 % (36-46); Hemoglobin 13.7 g/dL (12.0-16.0); Lymphocytes Absolute Auto 2100 /uL (1100-4500); Lymphocytes Percent Auto 28.9 % (25-40); Mean Corpuscular HGB Conc 33.7 % (30-36); Mean Corpuscular Volume 94.8 fL (80-100); Monocytes Absolute Auto 800 /uL (0-900); Monocytes Percent Auto 11.7 % (3-14); Neutrophils Absolute Auto 4100 /uL (1500-7000); Neutrophils Percent Auto 56.7 % (50-75); Platelet Count 295 X10^3/uL (150-400); Red Blood Cell Count 4.27 X10^6/uL (4.0-5.2); Red Cell Distribution Width 12.7 % (11.6-14.8); White Blood Cell Count 7.3 X10^3/uL (4.5-11.0)
[2023-07-31 11:26] LABS: Alanine Aminotransferase 21 IU/L (<35); Albumin 3.8 g/dL (3.5-5.0); Albumin Globulin Ratio 1.3 (1.0-2.8); Alkaline Phosphatase 97 U/L (38-126); Aspartate Aminotransferase 25 IU/L (14-36); BUN Creatinine Ratio 30.4 (6-22); Bilirubin Total 0.7 mg/dL (0.2-1.3); Blood Urea Nitrogen 17 mg/dL (7-17); Calcium 9.6 mg/dL (8.4-10.2); Carbon Dioxide 31 mmol/L (22-32); Chloride 105 mmol/L (98-107); Cholesterol 229 mg/dL (140-199); Estimated Glomerular Filt Rate > 60 mL/min (>60); Glucose 93 mg/dL (80-110); HDL Cholesterol 46 mg/dL (40-60); HEMOLYSIS < 15 (0-50); LDL Cholesterol Calculated 158 mg/dL (<100); Potassium 4.6 mmol/L (3.4-5.1); Sodium 140 mmol/L (137-145); Total Protein 6.8 g/dL (6.3-8.2); Triglycerides 124 mg/dL (35-150)
[2023-07-31 11:56] LABS: TSH w/ Reflex to FT4 0.17 uIU/mL (0.47-4.68)
== END ==
PROVIDERS: PCP Registered Nurse Diabetes Educator; Referring Provider Registered Nurse Diabetes Educator; Visit Provider Registered Nurse Diabetes Educator
DX: E78.5 Hyperlipidemia, unspecified (principal); C54.1 Malignant neoplasm of endometrium; E03.9 Hypothyroidism, unspecified; I10 Essential (primary) hypertension
CPT/HCPCS: 36415; 80053; 80061; 84439; 84443; 85025

== ENCOUNTER → 2023-09-27 08:58 | Outpatient (CLI) | payer MEDICARE, SELFPAY ==
[2020-08-06 12:01] VITALS: BMI 42.1
[2023-09-27 11:09] LABS: TSH w/ Reflex to FT4 0.66 uIU/mL (0.47-4.68)
== END ==
PROVIDERS: PCP Registered Nurse Diabetes Educator; Referring Provider Registered Nurse Diabetes Educator; Visit Provider Registered Nurse Diabetes Educator
DX: E03.9 Hypothyroidism, unspecified (principal)
CPT/HCPCS: 36415; 84443

== ENCOUNTER → 2024-04-21 14:12 | Outpatient (CLI) | payer MEDICARE, SELFPAY ==
[2020-08-06 12:01] VITALS: BMI 42.1
[2024-04-21 15:08] LABS: HEMOLYSIS < 15 (0-50)
[2024-04-21 15:12] LABS: Iron 53 ug/dL (37-170)
[2024-04-21 15:23] LABS: Percent Iron Saturation 22 % (15-50); Total Iron Binding Capacity 239 ug/dL (265-497); Transferrin 211 mg/dL (206-381)
[2024-04-21 15:33] LABS: Free T3, Triiodothyronine Free 2.58 pg/mL (2.77-5.27)
[2024-04-21 15:44] LABS: Thyroid Stimulating Hormone 1.23 uIU/mL (0.47-4.68)
[2024-04-21 15:49] LABS: Ferritin 129 ng/mL (11-264)
[2024-04-21 15:57] LABS: Free T4, Direct Thyroxine 0.96 ng/dL (0.78-2.19)
== END ==
PROVIDERS: PCP Registered Nurse Diabetes Educator; Referring Provider Obstetrics & Gynecology; Visit Provider Obstetrics & Gynecology
DX: L65.9 Nonscarring hair loss, unspecified (principal)
CPT/HCPCS: 36415; 82728; 83540; 83550; 84439; 84443; 84481

== ENCOUNTER → 2024-09-20 16:56 | Outpatient (CLI) | payer MEDICARE, SELFPAY ==
[2020-08-06 12:01] VITALS: BMI 42.1
[2024-09-20 18:11] LABS: Add Manual Diff / Slide Review NO; Basophils Absolute Auto 100 /uL (0-100); Basophils Percent Auto 0.8 % (0-2); Eosinophils Absolute Auto 200 /uL (0-450); Eosinophils Percent Auto 2.3 % (2-4); Hematocrit 41.2 % (36-46); Hemoglobin 14.2 g/dL (12.0-16.0); Lymphocytes Absolute Auto 2900 /uL (1100-4500); Lymphocytes Percent Auto 34.6 % (25-40); Mean Corpuscular HGB Conc 34.5 % (30-36); Mean Corpuscular Hemoglobin 32.6 PG (26-34); Mean Corpuscular Volume 94.6 fL (80-100); Monocytes Absolute Auto 900 /uL (0-900); Monocytes Percent Auto 10.6 % (3-14); Neutrophils Absolute Auto 4300 /uL (1500-7000); Neutrophils Percent Auto 51.7 % (50-75); Platelet Count 314 X10^3/uL (150-400); Red Blood Cell Count 4.36 X10^6/uL (4.0-5.2); Red Cell Distribution Width 12.8 % (11.6-14.8); White Blood Cell Count 8.3 X10^3/uL (4.5-11.0)
[2024-09-20 18:24] LABS: HEMOLYSIS 16 (0-50); Iron 94 ug/dL (37-170)
[2024-09-20 18:28] LABS: Alanine Aminotransferase 18 IU/L (<35); Albumin 4.4 g/dL (3.5-5.0); Albumin Globulin Ratio 1.3 (1.0-2.8); Alkaline Phosphatase 93 U/L (38-126); Aspartate Aminotransferase 32 IU/L (14-36); BUN Creatinine Ratio 29.4 (6-22); Bilirubin Total 0.7 mg/dL (0.2-1.3); Blood Urea Nitrogen 20 mg/dL (7-17); C-Reactive Protein Quant 0.8 mg/dL (<1.0); Calcium 9.6 mg/dL (8.4-10.2); Carbon Dioxide 28 mmol/L (22-32); Chloride 103 mmol/L (98-107); Estimated Glomerular Filt Rate > 60 mL/min (>60); Globulin 3.3 g/dL (1.7-4.1); Glucose 92 mg/dL (70-99); HEMOLYSIS < 15 (0-50); Potassium 3.7 mmol/L (3.4-5.1); Sodium 139 mmol/L (137-145); Total Protein 7.7 g/dL (6.3-8.2)
[2024-09-20 18:35] LABS: Percent Iron Saturation 34 % (15-50); Total Iron Binding Capacity 275 ug/dL (265-497); Transferrin 222 mg/dL (206-381)
[2024-09-20 19:02] LABS: Ferritin 152 ng/mL (11-264)
== END ==
PROVIDERS: PCP Registered Nurse Diabetes Educator; Referring Provider Registered Nurse Diabetes Educator; Visit Provider Registered Nurse Diabetes Educator
DX: R79.89 Other specified abnormal findings of blood chemistry (principal)
CPT/HCPCS: 36415; 80053; 81256; 82728; 83540; 83550; 85025; 86140